=== PATIENT | female | born 1940 | race Caucasian/White ===

== ENCOUNTER 2016-10-01 20:56 | Emergency (ER) | payer MEDICARE ==
[2016-10-01] MEDS ORDERED: Alum Hydrox/Mag Hydrox/Simeth 15 ML, Lidocaine 2% 15 ML PO ONE ×2 (21:05)
[2016-10-01] MEDS ORDERED: Lidocaine 2% Viscous Solution 15 ML Cup ONE (21:07)
[2016-10-01] MEDS ORDERED: Aluminum Hydroxide/Magnesium Hydroxide/Simethicone Susp 30 ML Cup ONE (21:07)
[2016-10-01] MEDS ORDERED: Atropine/Hyoscyamine/PHENobarbital/Scopolamine Elixir 10 ML UD ONE (21:07)
--- NOTE | 2016-10-01 22:21 | EDM.PDOC ---
ED HPI GENERAL MEDICAL PROBLEM - General Chief Complaint: Chest Pain Stated Complaint: ILLNESS Time Seen by Provider: 10/01/16 21:15 Source of Information: Reports: Patient, Family History Limitations: Reports: No Limitations - History of Present Illness INITIAL COMMENTS - FREE TEXT/NARRATIVE: pt was at a wedding and she had a couple of drinks and she began to have pressure in her upper abdoman. She had pressure also in the uppwer chest and felt like she had alot of acid in her throat. aspirin was not given because of the severe burning she was having. Onset: Today, Sudden Duration: Hour(s): Location: Reports: Chest, Abdomen Associated Symptoms: Reports: Chest Pain, Other (upper abdomanal pain. ) - Related Data Allergies Allergy/AdvReac Type Severity Reaction Status Date / Time No Known Allergies Allergy Verified 09/13/14 18:06 Home Meds: Home Meds Alendronate Sodium [Alendronate] 10/01/16 [History] Cholecalciferol (Vitamin D3) [Vitamin D3] 10/01/16 [History] Levothyroxine [Synthroid] 10/01/16 [History] Metoprolol Tartrate [Metoprolol Tartrate] 10/01/16 [History] amLODIPine [Norvasc] 10/01/16 [History] atorvaSTATin [Lipitor] 10/01/16 [History] Past Medical History - Past Health History Medical/Surgical History: Denies Medical/Surgical History Neurological History: Reports: CVA Social & Family History - Tobacco Use Smoking Status *Q: Never Smoker Second Hand Smoke Exposure: No - Alcohol Use Days Per Week of Alcohol Use: 2 Number of Drinks Per Day: 2 Total Drinks Per Week: 4 - Recreational Drug Use Recreational Drug Use: No ED ROS GENERAL - Review of Systems Review Of Systems: See Below Constitutional: Reports: No Symptoms HEENT: Reports: No Symptoms Respiratory: Reports: Shortness of Breath Cardiovascular: Reports: Other (pressure in the upper chest. She was grabbing her abdoman. ) GI/Abdominal: Reports: Abdominal Pain, Other (pt had a pressure sensation) : Reports: No Symptoms Musculoskeletal: Reports: No Symptoms Skin: Reports: No Symptoms ED EXAM, GENERAL - Physical Exam Exam: See Below Free Text/Narrative:: pt had pressure in her chest and upper abdoman after she had a few drinks. Exam Limited By: No Limitations General Appearance: Alert, Anxious, Mild Distress Ears: Normal TMs Nose: Normal Inspection Throat/Mouth: Normal Inspection Head: Atraumatic Neck: Normal Inspection Cardiovascular: Other ( chest pressure. ) GI/Abdominal: Soft, Non-Tender Rectal (Female) Exam: Deferred Extremities: Normal Inspection Neurological: Alert, Oriented, Normal Cognition, Other ( because of her previous stroke she has trouble communicating. ) Course - Vital Signs Last Recorded V/S: Last Vital Signs Temp 36.0 C 10/01/16 21:25 Pulse 67 10/01/16 22:33 Resp 16 10/01/16 22:33 BP 120/62 10/01/16 22:33 Pulse Ox 94 L 10/01/16 22:33 - Orders/Labs/Meds Labs: Laboratory Tests 10/01/16 10/01/16 10/01/16 Range/Units 21:14 21:14 21:14 WBC 9.3 (4.5-11.0) K/uL RBC 4.05 (3.30-5.50) M/uL Hgb 13.0 (12.0-15.0) g/dL Hct 39.6 (36.0-48.0) % MCV 98 (80-98) fL MCH 32 H (27-31) pg MCHC 33 (32-36) % Plt Count 57 L (150-400) K/uL Neut % (Auto) 45 (36-66) % Lymph % (Auto) 42 (24-44) % Sumner % (Auto) 10 H (2-6) % Eos % (Auto) 2 (2-4) % Baso % (Auto) 1 (0-1) % Sodium 141 (140-148) mmol/L Potassium 3.6 (3.6-5.2) mmol/L Chloride 105 (100-108) mmol/L Carbon Dioxide 28 (21-32) mmol/L Anion Gap 8.1 (5.0-14.0) mmol/L BUN 10 (7-18) mg/dL Creatinine 1.0 (0.6-1.0) mg/dL Est Cr Clr Drug Dosing TNP Estimated GFR (MDRD) 54 L (>60) Glucose 103 (74-106) mg/dL Calcium 9.0 (8.5-10.1) mg/dL Total Bilirubin 0.4 (0.2-1.0) mg/dL AST 24 (15-37) U/L ALT 29 (12-78) U/L Alkaline Phosphatase 71 (46-116) U/L Creatine Kinase 104 (26-192) U/L Troponin I < 0.017 (0.000-0.056) ng/mL Total Protein 6.8 (6.4-8.2) g/dL Albumin 3.6 (3.4-5.0) g/dL Globulin 3.2 (2.3-3.5) g/dL Albumin/Globulin Ratio 1.1 L (1.2-2.2) Urine Color Urine Appearance Urine pH (4.5-8.0) Ur Specific Kemmerer (1.008-1.030) Urine Protein (NEGATIVE) mg/dL Urine Glucose (UA) (NEGATIVE) mg/dL Urine Ketones (NEGATIVE) mg/dL Urine Occult Blood (NEGATIVE) Urine Nitrite (NEGATIVE) Urine Bilirubin (NEGATIVE) Urine Urobilinogen (NORMAL) mg/dL Ur Leukocyte Esterase (NEGATIVE) Urine RBC (0-5) Urine WBC (0-5) Ur Epithelial Cells Amorphous Sediment Urine Bacteria Urine Mucus 10/01/16 Range/Units 21:53 WBC (4.5-11.0) K/uL RBC (3.30-5.50) M/uL Hgb (12.0-15.0) g/dL Hct (36.0-48.0) % MCV (80-98) fL MCH (27-31) pg MCHC (32-36) % Plt Count (150-400) K/uL Neut % (Auto) (36-66) % Lymph % (Auto) (24-44) % Sumner % (Auto) (2-6) % Eos % (Auto) (2-4) % Baso % (Auto) (0-1) % Sodium (140-148) mmol/L Potassium (3.6-5.2) mmol/L Chloride (100-108) mmol/L Carbon Dioxide (21-32) mmol/L Anion Gap (5.0-14.0) mmol/L BUN (7-18) mg/dL Creatinine (0.6-1.0) mg/dL Est Cr Clr Drug Dosing Estimated GFR (MDRD) (>60) Glucose (74-106) mg/dL Calcium (8.5-10.1) mg/dL Total Bilirubin (0.2-1.0) mg/dL AST (15-37) U/L ALT (12-78) U/L Alkaline Phosphatase (46-116) U/L Creatine Kinase (26-192) U/L Troponin I (0.000-0.056) ng/mL Total Protein (6.4-8.2) g/dL Albumin (3.4-5.0) g/dL Globulin (2.3-3.5) g/dL Albumin/Globulin Ratio (1.2-2.2) Urine Color Yellow Urine Appearance Slightly cloudy Urine pH 6.0 (4.5-8.0) Ur Specific [place] 1.010 (1.008-1.030) Urine Protein Negative (NEGATIVE) mg/dL Urine Glucose (UA) Normal (NEGATIVE) mg/dL Urine Ketones Negative (NEGATIVE) mg/dL Urine Occult Blood Moderate (NEGATIVE) Urine Nitrite Negative (NEGATIVE) Urine Bilirubin Negative (NEGATIVE) Urine Urobilinogen Normal (NORMAL) mg/dL Ur Leukocyte Esterase Large (NEGATIVE) Urine RBC 10-20 H (0-5) Urine WBC 30-40 H (0-5) Ur Epithelial Cells Moderate Amorphous Sediment Not seen Urine Bacteria Moderate Urine Mucus Not seen Meds: Medications Discontinued Medications Generic Name Dose Route Start Last Admin Trade Name Cristel PRN Reason Stop Dose Admin Al Hydroxide/Mg Hydroxide Confirm 10/01/16 21:07 Mag-Al Plus Administered 10/01/16 21:08 Dose 30 ml .ROUTE .STK-MED ONE Belladonna/Phenobarbital Confirm 10/01/16 21:07 10/01/16 21:30 Elixir Administered 10/01/16 21:08 10 ml Dose Administration 10 ml .ROUTE .STK-MED ONE Belladonna/Phenobarbital 10 ml 10/02/16 19:16 Elixir PO 10/02/16 19:17 ONETIME ONE Ciprofloxacin 500 mg 10/01/16 22:34 10/01/16 22:41 Ciprofloxacin Hcl PO 10/01/16 22:35 500 mg ONETIME ONE Administration Al Hydroxide/Mg Hydroxide 15 0 ml 10/01/16 21:05 10/01/16 21:29 ml/ Lidocaine HCl 15 ml PO 10/01/16 21:06 30 ml ONETIME ONE Administration Lidocaine HCl Confirm 10/01/16 21:07 Xylocaine 2% Viscous Administered 10/01/16 21:08 Dose 15 ml .ROUTE .STK-MED ONE Pantoprazole Sodium 40 mg 10/02/16 21:00 10/01/16 22:42 Protonix PO 10/02/16 21:01 40 mg BEDTIME ONE Administration Pantoprazole Sodium Confirm 10/01/16 22:39 Protonix Administered 10/01/16 22:40 Dose 40 mg .ROUTE .STK-MED ONE - Re-Assessments/Exams Free Text/Narrative Re-Assessment/Exam: 10/01/16 22:30 pt had an episode of severe gerd after choking, This did bring about some chest pressure. She was given a Gi cocktail and had complete relief. She is comfortable at this time. She had a normal ekg and normal cardiac enzymes. 10/03/16 08:52 she was not given asa because of the severe burning and gi upset. Departure - Departure Time of Disposition: 22:32 Disposition: Home, Self-Care 01 Condition: Fair Clinical Impression: GERD (gastroesophageal reflux disease), Esophageal spasm Instructions: Gastroesophageal Reflux Disease, Adult Referrals: PCP,None [Primary Care Provider] - Forms: ED Department Discharge Care Plan Goals: prilosec 20mg daily for 10 days, cipro 500mg bid for 1 week. rtc if problems.
[2016-10-01 22:34] VITALS: BP 120/62
[2016-10-01] MEDS ORDERED: Ciprofloxacin 500 MG Tab PO ONE (22:34)
[2016-10-01] MEDS ORDERED: Pantoprazole 40 MG Tab.CR ONE (22:39)
[2016-10-02] MEDS ORDERED: Atropine/Hyoscyamine/PHENobarbital/Scopolamine Elixir 10 ML UD PO ONE (19:16)
[2016-10-02] MEDS ORDERED: Pantoprazole 40 MG Tab.CR PO ONE (21:00)
--- NOTE | 2016-10-03 09:19 | CR ---
Low lung volumes. Interstitial thickening which may be due to vascular congestion or chronic fibroin terstitial change. Retrocardiac density. This could indicate a hiatal hernia. Infiltrate not exclude d. Recommend comparison to old studies. If not recommend a lateral x-ray follow-up or CT follow-up.
== END 2016-10-01 23:09 | disposition home or self-care (01) ==
LOC: JP.ED 20:56
DX: K21.9 Gastro-esophageal reflux disease without esophagitis (principal); K22.4 Dyskinesia of esophagus; Z86.73 Personal history of transient ischemic attack (TIA), and cerebral infarction without residual deficits; Z79.899 Other long term (current) drug therapy
CPT/HCPCS: 36415; 71010; 80053; 81001; 82550; 84484; 85025; 87086; 93005; 99285; A9270; 93010; 99283

== ENCOUNTER 2023-10-08 04:13 | Emergency (ER) | payer MEDICARE | END 2023-10-08 05:20 | disposition left against medical advice (07) | LOC: JP.ED 04:13 | DX: Z53.21 Procedure and treatment not carried out due to patient leaving prior to being seen by health care provider (principal) ==